=== PATIENT | female | born 1965 ===

== ENCOUNTER 2021-04-17 07:39 | Outpatient (CLI) | payer OTHER | END 2021-04-17 07:42 | disposition home or self-care (01) | LOC: NUCLEAR 07:39 | PROVIDERS: ATTEND Internal Medicine Endocrinology, Diabetes & Metabolism | DX: E05.00 Thyrotoxicosis with diffuse goiter without thyrotoxic crisis or storm (principal) | CPT/HCPCS: 78012; A9531 ==

== ENCOUNTER → 2021-04-18 08:24 | Outpatient (CLI) | payer OTHER | END | disposition home or self-care (01) | LOC: NUCLEAR 08:00 | PROVIDERS: ATTEND Internal Medicine Endocrinology, Diabetes & Metabolism | DX: E05.00 Thyrotoxicosis with diffuse goiter without thyrotoxic crisis or storm (principal) | CPT/HCPCS: 78013; A9512 ==